=== PATIENT | female | born 1950 | race Caucasian/White ===

== ENCOUNTER 2021-01-03 12:58 | Outpatient (REF) | payer MEDICARE, SELFPAY ==
--- NOTE | 2021-01-03 16:00 | MHC.AU.AHA ---
Adult Audiological Evaluation Date of Visit: 01/03/21 Reason for Appointment: Audiological re-evaluation to monitor the status of Ms. Bradshaw's hearing loss. She has a known bilateral, sensorineural hearing loss with the left ear hearing slightly worse than the right and uses hearing aids binaurally. She denies any significant changes to her hearing sensitivity. Changes to her medical history since her last visit include gallbladder surgery, hand surgery due to arthritis, and oral surgery. Previous Hearing Test Results: [facility] [place], 04/06/19- Mild to moderately severe sensorineural hearing loss in the left ear. Mild to severe sensorineural hearing loss in the right ear. Medical History: Medical History: Headache, High Blood Pressure, Meningitis, Thyroid Disease, Vascular Problems Medical History: COPD, arthritis, hysterectomy, appendectomy, hip replacement, three arm surgeries, hand surgery, gall bladder surgery, and oral surgery Allergies: Pilocarpine, Cortisporin-TC Medication List: See list Hearing Instrument History- Right Ear: Site Worker: Oticon Model: Opn 1 miniRITE-T Serial Number: [id number] Battery Size: 312 Repair Warranty: Loss and Damage Warranty: Dispensed By: [facility] Date of Fittin11/06/2016 Hearing Instrument History- Left Ear: Site Worker: Oticon Model: Opn 1 miniRITE-T Serial Number: [id number] Battery Size: 312 Warranty: Loss and Damage Warranty: Dispensed By: [facility] Date of Fittin11/06/2016 Otoscopy: Right Ear: Partially occluding cerumen removed with lighted curette without incident Left Ear: Unremarkable Hearing Evaluation: Transducer(s) Used: Insert Earphones, Bone Conduction Method: Conventional Audiometry Stimuli Used: Pure Tones Right Ear: Description of Hearing: Normal hearing from 250-1000 Hz, sloping to a mild to severe sensorineural hearing loss from 9217-9040 Hz. Left Ear: Description of Hearing: Mild hearing loss at 250 Hz, rising to normal hearing at 500 Hz, and sloping to a mild to moderately-severe sensorineural hearing loss from 2520-5070 Hz. Hearing in the left ear is 5-15 dBHL worse than the right ear from 250-4000 Hz. Speech Recognition Threshold (SRT): Method Used: Monitored Live Voice Stimuli Used: Spondee Words Right Ear: 20 dBHL Left Ear: 30 dBHL Word Discrimination: Method: Recorded Lists Word Lists Used: NU-6 Right Ear: 96% at 60 dBHL Left Ear: 92% at 70 dBHL Comparison: Compared to the most recent evaluation: Hearing is stable. Recommendations: Audiological re-evaluation in one year. Hearing aid maintenance performed today. Diagnosis: Primary Diagnosis: H90.3 Bilateral Sensorineural Hearing Loss Services Performed: Comprehensive Audiological Evaluation (CPT 27541) Signature: Provider: Aleah Funk, CCC-A
== END 2021-01-03 12:59 | disposition home or self-care (01) ==
LOC: HO.SH 12:58
PROVIDERS: Visit Provider Internal Medicine
DX: H90.3 Sensorineural hearing loss, bilateral (principal)
CPT/HCPCS: 92557

== ENCOUNTER 2022-03-26 12:35 | Outpatient (REF) | payer MEDICARE, SELFPAY | END 2022-03-26 12:36 | disposition home or self-care (01) | LOC: HO.SH 12:35 | PROVIDERS: Visit Provider Internal Medicine | DX: Z01.118 Encounter for examination of ears and hearing with other abnormal findings (principal); H90.3 Sensorineural hearing loss, bilateral | CPT/HCPCS: 92557; 92567 ==

== ENCOUNTER 2022-12-24 15:10 | Outpatient (AMB) | payer MEDICARE, SELFPAY ==
--- NOTE | 2022-12-24 15:08 | A.OFFVIS_ITS ---
Intake Vital Signs 12/24/22 15:17 Height 5 ft 2 in Weight 136 lb BMI 24.9 BP 147/72 H Blood Pressure Location Lt brachial Position Sitting Pulse 87 Pulse Source Pulse Oximeter Pulse Oximetry (%) 96 Oxygen Delivery Method Room Air Intake Visit Reasons: CHRONIC LEFT ISCHIAL TUBEROSITY PAIN Intake Note: Pain today 06/18 Oven Equipment Repairer Required: No Accompanied by: Spouse Allergies RAJI Inhibitors Allergy (Unknown, Verified 12/24/22 15:32) cough colistin [From Cortisporin-TC] Allergy (Unknown, Verified 12/24/22 15:32) Rash hydrocortisone [From Cortisporin-TC] Allergy (Unknown, Verified 12/24/22 15:32) Rash neomycin [From Cortisporin-TC] Allergy (Unknown, Verified 12/24/22 15:32) Rash pilocarpine Allergy (Unknown, Verified 12/24/22 15:32) Unknown thonzonium bromide [From Cortisporin-TC] Allergy (Unknown, Verified 12/24/22 15:32) Rash HPI CHRONIC LEFT ISCHIAL TUBEROSITY PAIN HPI Details Patient is a pleasant 72 years old female with history of left total hip arthroplasty (Dr. Richards, [facility], 2006), sacroiliitis, chronic left ischial bursitis, OA, anxiety, Bipolar disorder, depression, presents today with chronic left buttock pain. She has tenderness on palpation in the projection of left medial ischial tuberosity and left hip abductor tendon, mild tenderness in left GTB as well. No piriformis or sciatic notch tenderness. Denies any recent trauma, injury or falls. She reports initial onset of left medial buttock pain 6-12 months post-left LEONA. Patient has seen multiple providers for her chronic pain, including [facility] who performed pudendal nerve block and cryoablation providing her 100% pain relief for 6 months. She also seen Neurology who believed her left buttock pain was related to her left hip replacement. Orthopedic surgeon confirmed stability of the hardware. She also saw her Brand Analyst who performed lidocaine injections transvaginally which were unhelpful per patient. Patient has also tried to manage her pain with Tylenol, Fentanyl patch, Morphine with mild relief and Lyrica that caused her side effects. She is currently on gabapentin 100 mg TID with mild to moderate benefit, heat therapy and cushioning pillow. Patient cannot take NSAIDs as she is on B[place]os[place]. She also completed Pelvic Floor PT at [facility] ~10-15 years ago with mild to no improvement in her symptoms and has been regularly involved in physical daily activity including walking, light aerobics, stretching exercises and treadmill. Denies any fever, weight loss, abdominal, pelvic or groin pain, weakness, numbness, burning, tingling, bladder or bowel dysfunction or saddle anesthesia. Duration Chronic pain since 2005, since left hip replacement Characteristics of symptom or complaint Dull, aching pain, non-radiating Aggravating or associated factors Sitting Relieving factors Ice packs, nerve block, avoiding sitting, Donut pillow, gabapentin Treatment PT, pudental nerve blocks, cryoablation at [facility] Medical History (Updated 12/24/22 @ 16:14 by GINETTE Coles) Left buttock pain Polymyalgia rheumatica Cholelithiasis Chronic arthritis Panic disorder Hypothyroidism Spinal stenosis of lumbar region Bokoshe toxicity Asthma COPD (chronic obstructive pulmonary disease) Hypertension Surgical History (Updated 12/24/22 @ 16:18 by GINETTE Coles) History of total left hip arthroplasty (~2005) Hx of cholecystectomy H/O: hysterectomy Social History (Updated 12/24/22 @ 15:17 by Caryn Chandler) Alcohol intake: former Year quit: 30 y Patient Tobacco Use Status: Former Tobacco user Substance Use Type: Caffiene Substance Use Type Other:: coffee 2 cups Review of Systems Const All systems reviewed & are unremarkable except as noted in HPI and below Physical Exam Vital Signs: Last Vital Signs Pulse 87 12/24/22 15:17 BP 147/72 H 12/24/22 15:17 Pulse Ox 96 12/24/22 15:17 Oxygen Delivery Method Room Air 12/24/22 15:17 BMI result Body Mass Index 24.9 General: Appears afebrile. Alert and oriented. Mood and affect appropriate. Follows and participates in conversation appropriately. Respiratory effort is unlabored. No cough. No nasal discharge. Able to transition from sit to stand unassisted. Ambulates with bilaterally normal heel strike and toe off. Back/Spine/Pelvis Cervical Spine: cervical ROM normal and No Cervical spine tenderness Thoracic/Lumbar Spine: thoracic and lumbar spine normal to inspection, No Thoracic/lumbar spine scar(s), thoraco-lumbar ROM normal, Lasegue's sign negative and straight leg raise negative bilaterally Pelvis: buttock tenderness (+TTP left medial ischial tuberosity) on the left, no buttock swelling, no sciatic notch tenderness and no tenderness over symphysis pubis Sacroiliac joints: bilaterally (Maynor's, Pelvic compression, Stinchfield- negative bilaterally) nontender Sacrum: no tenderness Extrem General: Yes capillary refill normal, Yes no clubbing, cyanosis or edema and Yes no calf tenderness Left lower extremity: hip/thigh Details: normal to inspection and tenderness Location: of the hip (+TTP medial ischial tuberosity, +TTP hip abductor tendons) Location: anteromedially and over the great trochanter Results Reviewed Results Reviewed: MR OF THE HIP WITHOUT CONTRAST, LEFT 11/06/22 at [facility] INFORMATION: Left hip pain. Evaluate for calcific tendinitis versus tendinosis versus degeneration of the tendons at the level of the ischial tuberosity. COMPARISON: None available. FINDINGS: Metal artifact surrounding the prosthetic components limits the assessment of the immediately adjacent tissues including both the surrounding bone and soft tissues. This limitation is mitigated by the optimized MRI sequences. No significant abnormal periprosthetic marrow edema signal is identified. Specifically, no appreciable osteolysis or surrounding edema signal. No periprosthetic fractures are identified. SI joints are relatively well preserved. Mild osteoarthritis is suspected in the right hip with marginal osteophytes. Pubic symphysis is unremarkable. There is a small left hip joint effusion with patulousness of the posterior joint capsule. There is minimal synovitis in the posterior recess of the joint. A small collection of fluid is present in the lateral soft tissues superficial to the gluteus medius and deep to the iliotibial band, measuring 2 x 1 x 3.5 cm, likely along the surgical track. No additional fluid collection surrounding the surgical track or left hip. No periarticular pseudotumors are identified. No significant surrounding soft tissue edema signal. The left hamstring tendons appear intact at the level of the ischial tuberosity without tears or appreciable tendinosis. No findings of calcific tendinitis are identified. There is asymmetric atrophy of the left short external rotator musculature, consistent with the left total hip arthroplasty. Musculature is otherwise normal in signal intensity and bulk. No appreciable tendon tears. The soft tissue anchors at the greater tuberosity may correspond to a site of prior gluteus medius tendon repair. The peripheral nerves are unremarkable. No focal signal abnormalities or mass effect identified. No acute intrapelvic findings. Mild sigmoid diverticulosis. No adenopathy. IMPRESSION: 1. Small left hip joint effusion with minimal synovitis at the patulous posterior joint capsule. This is of uncertain etiology, likely within the expected range of normal post total hip arthroplasty. 2. Intact hamstring tendons without significant tendinosis or tears. No calcific tendinitis is identified, though radiographs would be more sensitive for small foci of calcification. 3. No evidence of osteolysis or periprosthetic stress reaction. No pseudotumors. 4. Mild osteoarthritis in the right hip. 5. Small 2 x 1 x 3.5 cm fluid collection along the plane of surgery just deep to the IT band and superficial to the greater trochanter, most likely a small chronic seroma. No significant surrounding inflammatory change. Assessment & Plan Assessment & Plan (1) Left buttock pain: Code(s): M79.18 - Myalgia, other site (2) Ischial bursitis of left side: Code(s): M70.72 - Other bursitis of hip, left hip (3) History of total left hip arthroplasty: Onset Date: ~2005 Code(s): Z96.642 - Presence of left artificial hip joint Plan Discussed interventional treatments with patient which require diagnostic nerve blocks without sedation but may include oral Ativan. Tentatively will schedule Diagnostic Left Hip Abductor Tendon Saline Infiltration with local and US guidance and oral Ativan. Expectations, risks and benefits were reviewed with patient and her . Patient may also benefit from US-guided platelet-rich plasma (PRP) therapy. She will reach out to our office if she decides to proceed with the nerve blocks. Unfortunately, diagnostic injections require real time feedback from patient. Patient was also advised to continue pudendal nerve blocks with previous provider as we are unable to provide it here. All questions were answered and the patient is in agreement of plan. Follow-up as needed. Coding Level of Care Code New Pt Level 4 (78806) Diagnoses Left buttock pain M79.18 Ischial bursitis of left side M70.72 History of total left hip arthroplasty Z96.642
[2022-12-24 15:17] VITALS: BP 147/72; PULSE 87; O2SAT 96; BMI 24.9
== END 2022-12-24 15:58 | disposition home or self-care (01) ==
PROVIDERS: PCP Internal Medicine; Visit Provider Nurse Practitioner Family
DX: M79.18 Myalgia, other site (principal); M70.72 Other bursitis of hip, left hip; Z96.642 Presence of left artificial hip joint
CPT/HCPCS: 99204

== ENCOUNTER → 2022-12-24 15:10 | Outpatient (BNVA) | payer MEDICARE, SELFPAY | PROVIDERS: PCP Internal Medicine; Visit Provider Nurse Practitioner Family | DX: M79.18 Myalgia, other site (principal); M70.72 Other bursitis of hip, left hip; Z96.642 Presence of left artificial hip joint | CPT/HCPCS: 99202 ==

== ENCOUNTER 2024-08-24 15:15 | Outpatient (REF) | payer MEDICARE, SELFPAY ==
--- OUTSIDE RECORDS SUMMARY | 2024-08-24 17:07 | XMS_ITS | Continuity of Care Document ---
Author Organization [facility] Address [address] [place] [address]- Care Team Providers Care Textile Screen Maker Name Role Phone Wale GRANADOS, Omer Castro Primary Care Physician [phone] [place] [facility] [place]): [place]24 - 08/21/24 [facility] [address] [place] [address]- Attending Physician: Franklin Ruiz Referring Physician: Noris Betancourt Encounter Type: Triage Allergies, Adverse Reactions, Alerts Substance Criticality Severity Reaction Reaction Severity Status doxycycline Itching Active Klonopin Active Ativan paradoxil effect Act kamini Immunizations Given and Recorded Vaccine Date Status Refusal Reason influenza virus vaccine, inactivated 01/07/21 Give n influenza virus vaccine, inactivated 02/19/19 Roney rded influenza virus vaccine, inactivated 01/17/10 Roney rded tetanus/diphtheria/pertussis, acel(Tdap) 07/08/20 Recorded SARS-CoV-2 (COVID-19) mRNA-1273 vaccine 06/09/20 R ecorded SARS-CoV-2 (COVID-19) mRNA-1273 vaccine 05/12/20 R ecorded Fluzone (oldterm) 1 12/09/13 Given Pneumococcal Poly (PPV23) (oldterm) 02/12/07 Given Influenza Inactive (IM) (oldterm) 2 02/12/07 Given 1Admin Note: CDC info provided 2Admin Note: [facility] Medications albuterol 0.083% inhalation solution 3 mL = 2.5 mg, Inhalation, Every 6 hours, PRN for wheezing, J45.9, # 150 mL, 11 Refills, Maintenance, 10/24/23 11:13:00 AM EDT, Solution, [facility]/pharmacy #[id number], Substitution allowed J45.9, 158, cm, 10/24/23 10:58:00 EDT, Height, 58.1, kg, 10/12/22 9:59:00 EDT, Dry Weight Start Date: 10/24/23 Stop Date: 10/18/24 Status: Ordered Quantity: 150.0 Unit: mL Repeat number: 12 Erika-D 24 Hour Allergy & Congestion 180 mg-240 mg oral tablet, extended release 1 tablet, By Mouth, Daily, 0 Refills, Maintenance, 03/15/20 3:23:00 PM EST, Partial fill upon patientrequest if the prescription is for a schedule II opioid drug. Start Date: 03/15/20 Status: Ordered Repeat number: 1 cevimeline 30 mg oral capsule TAKE 1 CAPSULE BY MOUTH THREE TIMES A DAY Start Date: 06/05/23 Status: Ordered Repeat number: 1 Combivent Respimat 20 mcg-100 mcg/inh inhalation aerosol 1 puffs, Inhalation, 4 times a day, PRN Wheezing/Shortness of Breath, # 3 each, 3 Refills, Maintenance, 10/24/23 11:13:00 AM EDT, Aerosol, [facility]/pharmacy #[id number], 1 puffs Inhalation 4 times a day,x90 days,PRN:Wheezing/Shortness of Breath, 158, cm, 10/24/23 10:58:00 EDT, Height, 58.1, kg, 10/12/22 9:59:00 EDT, Dry Weight Start Date: 10/24/23 Stop Date: 10/18/24 Status: Ordered Quantity: 3.0 Unit: each Repeat number: 4 cyclobenzaprine 10 mg oral tablet 10 mg, 1, tablet, Refills 0, Maintenance, 08/13/23 9:04:00 AM EDT, Partial fill upon patient request if the prescription is for a schedule II opioid drug. Start Date: 08/13/23 Status: Ordered Repeat number: 1 esomeprazole 40 mg oral enteric coated capsule 1 capsule, By Mouth, 2 times a day, # 180 capsule, 2 Refills, Maintenance, 06/29/24 6:42:00 AM EDT, [facility], 158, cm, 06/08/24 11:22:00 EDT, Height, 58.5, kg, 06/05/24 23:46:00 EDT, Dry Weight Start Date: 06/29/24 Status: Ordered Quantity: 180.0 Unit: capsule Repeat number: 1 ferrous sulfate 324 mg (65 mg elemental iron) oral delayed release tablet 1 tablet = 324 mg, By Mouth, Daily, # 100 tablet, 0 Refills, Maintenance, 08/07/24 4:53:00 PM EDT, CR Tablet, Partial fill upon patient request if the prescription is for a schedule II opioid drug. Start Date: 08/07/24 Status: Ordered Quantity: 100.0 Unit: tablet Repeat number: 1 LaMICtal 100 mg oral tablet 200 mg, 2, tablet, By Mouth, 2 times a day, # 60 tablet, Refills 0, Maintenance, 03/15/20 3:18:00 PM EST, Partial fill upon patient request if the prescription is for a schedule II opioid drug. Start Date: 03/15/20 Status: Ordered Quantity: 60.0 Unit: tablet Repeat number: 1 levothyroxine 137 mcg (0.137 mg) oral capsule 1 capsule = 137 mcg, By Mouth, Daily, # 30 capsule, 0 Refills, Maintenance, 03/15/20 3:42:00 PM EST, Capsule, Partial fill upon patient request if the prescription is for a schedule II opioid drug. Start Date: 03/15/20 Status: Ordered Quantity: 30.0 Unit: capsule Repeat number: 1 lithium 300 mg oral tablet, extended release 1 tablet = 300 mg, TAKE 2 TABLETS AT BEDTIME Start Date: 06/05/23 Status: Ordered Repeat number: 1 losartan 100 mg oral tablet 1 tablet = 100 mg, By Mouth, Daily, # 30 tablet, 0 Refills, Maintenance, 03/15/20 3:20:00 PM EST, Tablet, Partial fill upon patient request if the prescription is for a schedule II opioid drug. Start Date: 03/15/20 Status: Ordered Quantity: 30.0 Unit: tablet Repeat number: 1 Myrbetriq 50 mg oral tablet, extended release 1 tablet = 50 mg, By Mouth, Daily, Brand name Myrbetriq only, no substitutions., # 90 tablet, 3 Refills, Maintenance, 03/19/24 3:14:00 PM EST, [facility]/pharmacy #[id number], Partial fill upon patient request if the prescription is for a schedule II opioid drug., 158, cm, 12/10/23 11:11:00 EDT, Height, 58.1, kg,10/12/22 9:59:00 EDT, Dry Weight Start Date: 03/19/24 Status: Ordered Quantity: 90.0 Unit: tablet Repeat number: 4 predniSONE 1 mg oral tablet 3 tablet = 3 mg, By Mouth, Daily, for polymyalgia rheumatica, prescribed by Dr Wolf at [facility], Maintenance, 12/20/22 9:10:00 AM EDT Start Date: 12/20/22 Status: Ordered Repeat number: 1 Probiotic Formula 1 capsule, By Mouth, Daily, 0 Refills, Maintenance, 12/19/18 3:23:25 PM EDT Start Date: 12/19/18 Status: Ordered Repeat number: 1 Trazodone = 50 mg, By Mouth, Daily at bedtime, PRN Insomnia, 0 Refills, Maintenance, 12/19/18 3:23:56 PM EDT Start Date: 12/19/18 Status: Ordered Repeat number: 1 Wixela Inhub 500 mcg-50 mcg inhalation powder INHALE 1 PUFF INHALE TWICE A DAY Start Date: 08/07/24 Status: Ordered Repeat number: 1 Problem List Condition Confirmation Course Effective Dates Status H ealth Status Informant Anxiety Confirmed Active Body mass index index 25-29 - overweight Confirmed Active Bony pelvic pain 1 Confirmed Active Chronic depression Confirmed Active Chronic pelvic pain Confirmed Active Drug interaction 2 Confirmed Active Gastro-esophageal reflux disease Confirmed Active Hemorrhoids Confirmed Active History of alcohol abuse 3 Confirmed Active Irritable bowel syndrome Confirmed Active Bursitis, ischial Confirmed Active Myofascial pain 4 Confirmed Active Nephrolithiasis 5 Confirmed Active 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 Opioid abuse Confirmed Active Pain in upper limb 6 Confirmed Active Pelvic pain syndrome Confirmed Active 1in the area of the left ischial tuberosity 2h/o tramadol treatment; h/o antidepressant and opioid co-treatment, h/o carisoprodol treatment; h/ototal CK>80<190 3sober since 1982 4regional 5h/o renal calculi ?2002 6left, s/p trauma and surgery 10/2007 Social History Social History Type Response Smoking Status Never (less than 100 in lifetime) entered on: 11/06/19 Sex Sex Representation Female (finding) Laboratory * Event Display: Laboratory Result Scanned Authored Date: Patient Care team information Care Team Personnel Name: Jordi Smith MD Position: [facility] UNDERGROUND SUPERVISOR MD Member Role: [employer] UNDERGROUND SUPERVISOR Physician Address: [address] [place] [address]- Telecom: Name: Kavya Roberts MA Position: [facility] Outreach Member Role: Lifetime Consulting Physician Name: Jackelyn Greene Position: [facility] Outreach Member Role: Lifetime Consulting Physician Name: Omer Echevarria MD Position: [facility] Physician - Primary Care Member Role: PCP Address: [address] [place] [address], [address] [facility] [place] [address]- Telecom: Care Team Related Persons Name: GLADIS URRUTIA Insurance Providers Guarantor name: ANNABEL URRUTIA Health Plan Information #: 1 Payer: MEDICARE B Payer Identifier: NORA Member Number: [id number] Group Number: Subscriber Identifier: [id number] Relationship to Subscriber: self Coverage Type: NA Coverage Verification Date: NA Telecom: NA Address: Health Plan Information #: 2 Payer: [employer]EX SECONDARY ONLY Payer Identifier: NA Member Number: [id number] Group Number: Subscriber Identifier: [id number] Relationship to Subscriber: self Coverage Type: Medicare Other Coverage Verification Date: NA Telecom: Address:
== END 2024-08-24 15:16 | disposition home or self-care (01) ==
LOC: HO.SH 15:15
PROVIDERS: Visit Provider Internal Medicine
DX: Z01.118 Encounter for examination of ears and hearing with other abnormal findings (principal); H90.3 Sensorineural hearing loss, bilateral
CPT/HCPCS: 92552; 92556

== ENCOUNTER 2024-08-24 16:24 | Outpatient (REF) | payer SELFPAY ==
--- NOTE | 2024-08-25 08:28 | MHC.AU.HA3 ---
Hearing Instrument Follow-Up- Binaural Date of Visit: 08/24/24 Right Ear: Make, Model, Color, Serial Number: Oticon Opn 1 miniRITE T [id number] Forming Machine Upkeep Mechanic Helper Repair Warranty: Forming Machine Upkeep Mechanic Helper Loss and Damage Warranty: [facility] Service Plan: n/a Battery Size: 312 Sample Room Supervisor/Slim Tube: Earmold/Dome/CShell/SlimTip:6mm dbl vaughan Type of Wax Guard: Prowax minifit Dispensed By: [facility] Date of Fittin11/06/2016 Left Ear: Make, Model, Color, Serial Number: Oticon Opn 1 miniRITE T [id number] Forming Machine Upkeep Mechanic Helper Repair Warranty: Forming Machine Upkeep Mechanic Helper Loss and Damage Warranty: [facility] Service Plan: n/a Battery Size: 312 Sample Room Supervisor/Slim Tube: Earmold/Dome/CShell/SlimTip: 6mm dbl vaughan Type of Wax Guard: Prowax minifit Dispensed By: [facility] Date of Fittin11/06/2016 Follow-Up Summary: Seen for evaluation, reports feeling that hearing aids are not helpful for a few months. Found wax guards clogged. Cleaned hearing aids, replaced domes, replaced tails, replaced wax guards. Increased overall gain slightly re: slight changes in audiogram. Recommendations: Recommendations: Hearing instrument follow-up or maintenance as needed. Diagnosis Code(s): Primary Diagnosis: H90.3 Bilateral Sensorineural Hearing Loss Signature: Provider: Sommer Small, [facility]
== END 2024-08-24 16:25 | disposition home or self-care (01) ==
LOC: HO.SH 16:24
PROVIDERS: Visit Provider Internal Medicine
DX: Z01.118 Encounter for examination of ears and hearing with other abnormal findings (principal); H90.3 Sensorineural hearing loss, bilateral
CPT/HCPCS: 92593